=== PATIENT | male | born 1995 | race Caucasian/White ===

== ENCOUNTER 2017-10-04 19:40 | Emergency (ER) | payer OTHER ==
[~2017-10-04] VITALS: Ht 182.9 cm; Wt 68.0 kg
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
[2017-10-04] MEDS ORDERED: LIDOCAINE 1% INJ 20 ML 20 ML VIAL INJ ONE (20:00)
[2017-10-04] MEDS ORDERED: CEPH-507 PO (20:20)
[2017-10-04 20:31] VITALS: BP 149/92
== END 2017-10-04 20:31 | disposition home or self-care (01) ==
LOC: ER 19:41
DX: S61.011A Laceration without foreign body of right thumb without damage to nail, initial encounter (principal); W26.8XXA Contact with other sharp object(s), not elsewhere classified, initial encounter
CPT/HCPCS: 12002